=== PATIENT | female | born 1990 | race Two or more races ===

== ENCOUNTER 2024-09-03 16:38 | Emergency (ER) | payer OTHER ==
[~2024-09-03] VITALS: Ht 160 cm; Wt 86.2 kg
[2024-09-03] MEDS ORDERED: PRED50TA PO (17:52)
[2024-09-03] MEDS ORDERED: ONDA4TAB5 PO (17:52)
[2024-09-03] MEDS ORDERED: LOPE2CAP40 PO (17:52)
[2024-09-03] MEDS ORDERED: AZIT500T PO (17:52)
[2024-09-03 17:59] VITALS: BP 106/75; TEMP 99.8; O2SAT 97
== END 2024-09-03 18:01 | disposition home or self-care (01) ==
LOC: ER 16:49
DX: J18.9 Pneumonia, unspecified organism (principal); R11.2 Nausea with vomiting, unspecified; R19.7 Diarrhea, unspecified; J45.909 Unspecified asthma, uncomplicated; Z79.52 Long term (current) use of systemic steroids; Z20.822 Contact with and (suspected) exposure to COVID-19
CPT/HCPCS: A4606; A4663